=== PATIENT | female | born 2000 | race Hispanic/Latino ===

== ENCOUNTER 2023-09-05 06:14 | Day surgery (SDC) | payer OTHER, SELFPAY ==
--- NOTE | 2023-09-05 06:12 | PM.HP.1 ---
History of Present Illness History of Present Illness Date Patient Seen: 08/12/23 Chief complaint: Right Achilles Tendon Repair Narrative: 23 year old female reports continuous pain in right leg. Patient states constant pain to the Achilles tendon and surrounding areas. Patient originally injured the right leg demonstrating a soccer move at work on 08/10/22. The pain since onset has lingered and worsened over the course of a year despite efforts with immobilization and Physical Therapy. Patient is unable to ambulate without CAM walker regularly. Patient is interested in proceeding with available surgical options due to failure and exhaustion of conservative measures. Patient denies n/v/f/c/sob/cp. Review of Systems Review of Systems Narrative: Negative except as mentioned in HPI. Exam Skin Other: Tone, temperature, and turgor of skin within normal limits. Neuro Other: Gross sensations intact. Extrem Other: Minimal pain on palpation of the right gastrocnemius muscle belly around the myotendinous junction. Negative Marquis's test. Right Achilles tendon intact with severe pain on palpation at insertion and midsubstance. Pain with active plantarflexion and passive dorsiflexion against resistance due to guarding. Decreased right ankle joint dorsiflexion with knees extended and flexed. Bony prominence at right posterior lateral heel. Assessment & Plan Assessment & Plan narrative: 1. Right foot calcaneal spur 2. Right leg contracture of calf muscle 3. Right Achilles tenodinosis Surgical plan includes right calcaneal spur excision with removal and reattachment of Achilles tendon, secondary Achilles tendon debrridement and repair with possible mariah augmentation, and right gastrocnemius recession. Risks and benefits of the procedure discussed with all questions answered to patient's satisfaction. Reviewed potential complications that may include but not limited to the following: DVT, failure to resolve all symptoms, infection, nerve injury, bleeding, recurrence, or wound. Patient elected to proceed with no guarantees made. Patient verbalized understanding and agreed with plan.
[2023-09-05] MEDS: LACTATED RINGERS 1,000 ML 100 ML IV (06:50)
[2023-09-05 07:05] VITALS: BP 121/78; PULSE 100; RESP 16; TEMP 36.2; O2SAT 97; BMI 34.0
[2023-09-05] MEDS: ACETAMINOPHEN 325 MG TABLET 975 MG PO (07:46)
[2023-09-05] MEDS: CEFAZOLIN 2 GM/100 ML PREMIX 100 ML IV (08:30)
--- NOTE | 2023-09-05 08:46 | SUR.PREOP ---
Block start time [0753] . Monitoring initiated and maintained throughout procedure. Oxygen and medications given per anesthesiologist instructions. Patient remained stable throughout procedure, no adverse reactions noted. Block end time [0825 ].
--- NOTE | 2023-09-05 08:48 | SUR.PREOP ---
block x 2
--- NOTE | 2023-09-05 09:15 | SUR.OPER ---
Prone on padded OR bed, head in foam head support, gel chest rolls, gel pad under knees, pillow under lower legs, toes free of pressure, arms secured on padded arm boards at <90 degrees abduction. Safety belt at thigh.
[2023-09-05 11:35] VITALS: BP 92/54; PULSE 95; RESP 28; TEMP 36.2; O2SAT 95
[2023-09-05 11:42] VITALS: BP 90/49; PULSE 100; RESP 226; TEMP 36.2; O2SAT 94
[2023-09-05 11:46] VITALS: BP 92/52; PULSE 105; RESP 11; TEMP 36.2; O2SAT 95
[2023-09-05 11:50] VITALS: PULSE 102; RESP 17; TEMP 36.3; O2SAT 96
[2023-09-05] MEDS: OXYCODONE IR 5 MG TABLET PO (11:55)
[2023-09-05] MEDS: ONDANSETRON 4 MG/2 ML INJ IV (11:55)
[2023-09-05 12:02] VITALS: BP 101/54; PULSE 101; RESP 18; TEMP 36.2; O2SAT 99
--- NOTE | 2023-09-15 22:55 | PM.OP.1 ---
Operative Date/Time/Diagnoses Date of procedure: 09/05/23 Pre-op diagnosis: 1. Right calcaneal spur 2. Right Achilles tendinosis 3. Right lower leg contracture Post-op diagnosis: same Procedure & Clinicians Procedure: 1. Right heel spur excision with detachment and reattachment of Achilles tendon 2. Right Achilles tendon secondary repair with graft implantation 3. Right gastrocnemius recession Same procedure as scheduled: Yes Indications: Failed conservative care over one year Surgeon: Robi Greene Anesthesia Type: General Operative Notes Findings: Prominent heel spur with notable hypertrophic changes to the Achilles tendon at insertion and decreased ankle range of motion from contracted triceps surae. Closure Type: primary Prosthetic devices, grafts, tissues, transplants, or devices: Arthrex SpeedBridge Estimated Blood Loss (mL): 25 Blood products transfused: none Tourniquet time (min): 120 Procedure in detail: Patient was identified and brought into the operating room via gurney then transferred onto the operating table. Regional block was performed in the pre-op holding area. Genera anesthesia was administered. Patient was in prone position through out the duration of the procedure. Thigh tourniquet was applied, which was set at 300 mmHg and inflated for a total of 120 minutes for this procedure. Right lower leg was verified to be marked, which was prepped in the usual sterile fashion followed by official timeout with the surgical team and everyone in agreement. Attention was directed to the right posterior-medial leg. A 4 cm incision was made at mid-calf. Care was taken to avoid great saphenous vein and nerve as dissection was bluntly deepened into the crural fascia of the muscle, which was sharply dissected to reveal the gastrocnemius and soleus muscle bellies. Next, with the foot held in dorsiflexion, linear transaction of the fascia for both muscles were performed using # 15 scalpel on long blade handle. Improved dorsfielxion was noted. The procedure site was irrgated with saline and then closed in layers using 3-0 vicryl and 3-0 nylon. Attention was then directed to the posterior heel where bony prominence was identified. A 4 cm linear incision was performed just medial to the midline. Dissection was carried down in layers down to the level of the tendon, which was sharply reflected and deattached from its insertion. Due to severe thickening and hypertrophic changes, debridement of the tendon was performed using #15 scalpel. A sagittal saw was then used to excise to bony prominence at the posterior aspect of the cacaneus. After adequate resection, the tendon was then reattached to the calcaneus using Arthrex SpeedBridge system with manufracture technique. The Achilles tendon was then repaired with 2-0 vicryl along with implantation of Arthrex Amnion Matrix. The procedure was then closed in layers from deep to skin using 3-0 and 4-0 vicryls and 3-0 nylon. The incision sites were dressed with iodine soaked Adaptic, gauze, Kerlix, and cast padding then placed in posterior splint held at neutral. All counts were correct. Patient tolerated procedure without complication and was transferred to PACU with all vital signs stable. Patient was discharged with all instructions for aftercare provided. Complications: none
== END 2023-09-05 12:35 | disposition home or self-care (01) ==
PROVIDERS: PCP Family Medicine; Referring Provider Podiatrist Foot & Ankle Surgery; Visit Provider Podiatrist Foot & Ankle Surgery
PROC: (CPT 27650; principal; 2023-09-05 07:45)
PROC: (CPT 27687; 2023-09-05 07:45)
DX: M77.31 Calcaneal spur, right foot (principal); M62.461 Contracture of muscle, right lower leg; G89.18 Other acute postprocedural pain; M65.271 Calcific tendinitis, right ankle and foot; Y93.66 Activity, soccer
CPT/HCPCS: 27654; 28118; 27687; 64450; C1713; J0330; J0690; J1100; J1885; J2250; J2405; J2704; J3010